=== PATIENT | male | born 1930 | race Caucasian/White ===

== ENCOUNTER 2018-06-22 11:05 | Inpatient (IN) | payer BC ==
[2018-06-22 11:53] LABS: ALANINE AMINOTRANSFERASE 31 U/L (21-72); ALKALINE PHOSPHATASE 55 U/L (38-126); ANION GAP 11 (5-19); ASPARTATE AMINO TRANSFERASE 46 U/L (17-59); BILIRUBIN,DIRECT 0.5 mg/dL (0.0-0.4); BILIRUBIN,TOTAL 0.8 mg/dL (0.2-1.3); BLOOD UREA NITROGEN 20 mg/dL (7-20); CALCIUM 9.6 mg/dL (8.4-10.2); CARBON DIOXIDE 26 mmol/L (22-30); CHLORIDE 100 mmol/L (98-107); CREATINE KINASE 138 U/L (55-170); GLUCOSE 199 mg/dL (75-110); POTASSIUM 4.3 mmol/L (3.6-5.0); SODIUM 137.2 mmol/L (137-145); TOTAL PROTEIN 8.2 g/dL (6.3-8.2)
[2018-06-22 11:54] LABS: ABSOLUTE BASOPHILS # (AUTO) 0.1 10^3/uL (0.0-0.2); ABSOLUTE EOSINOPHILS # (AUTO) 0.3 10^3/uL (0.0-0.6); ABSOLUTE LYMPHOCYTES (AUTO) 3.7 10^3/uL (0.5-4.7); ABSOLUTE MONOCYTES (AUTO) 1.4 10^3/uL (0.1-1.4); ABSOLUTE NEUT (AUTO) 5.1 10^3/uL (1.7-8.2); BASOPHILS % (AUTO) 0.7 % (0-2); EOSINOPHILS % (AUTO) 2.6 % (0-6); HEMATOCRIT 41.2 % (37.9-51.0); HEMOGLOBIN 14.3 g/dL (13.5-17.0); LYMPHOCYTES % (AUTO) 34.7 % (13-45); MEAN CORPUSCULAR HEMOGLOBIN 31.6 pg (27.0-33.4); MEAN CORPUSCULAR HGB CONC 34.6 g/dL (32.0-36.0); MEAN CORPUSCULAR VOLUME 91 fl (80-97); MONOCYTES % (AUTO) 13.6 % (3-13); PLATELET COUNT 267 10^3/uL (150-450); RED BLOOD COUNT 4.52 10^6/uL (4.35-5.55); RED CELL DISTRIBUTION WIDTH 15.1 % (11.5-14.0); SEGMENTED NEUTROPHILS % (AUTO) 48.4 % (42-78); TOTAL CELLS COUNTED % (AUTO) 100 %; WHITE BLOOD COUNT 10.6 10^3/uL (4.0-10.5)
[2018-06-22 12:05] LABS: CREATINE KINASE MB 4.44 ng/mL (<4.55)
[2018-06-22 12:08] LABS: TROPONIN I 0.051 ng/mL
--- NOTE | 2018-06-22 12:57 | RADIOLOGY REPORT (SQ) ---
EXAM DESCRIPTION: CHEST SINGLE VIEW COMPLETED DATE/TIME: 06/22/2018 12:47 pm REASON FOR STUDY: Syncope COMPARISON: AP chest 08/09/2016, 12/06/2011 EXAM PARAMETERS: NUMBER OF VIEWS: One view. TECHNIQUE: Single frontal radiographic view of the chest acquired. RADIATION DOSE: NA LIMITATIONS: None. FINDINGS: LUNGS AND PLEURA: Few Delano lines at both lung bases, likely from minimal interstitial pu lmonary edema. No pleural effusion or pneumothorax. No dense consolidation worrisome for pneumonia MEDIASTINUM AND HILAR STRUCTURES: No masses. Contour normal. HEART AND VASCULAR STRUCTURES: Borderline cardiomegaly, stable BONES: No acute findings. HARDWARE: None in the chest. OTHER: No other significant finding. IMPRESSION: Question minimal interstitial edema at the bases. TECHNICAL DOCUMENTATION: JOB ID: [id number] [employer]- All Rights Reserved Reading location - IP/workstation name: [email or web address]
--- NOTE | 2018-06-22 13:20 | RADIOLOGY REPORT (SQ) ---
EXAM DESCRIPTION: CT HEAD WITHOUT COMPLETED DATE/TIME: 06/22/2018 12:54 pm REASON FOR STUDY: syncope COMPARISON: 08/09/2016 CT brain TECHNIQUE: Axial images acquired through the brain without intravenous contrast. Images reviewed wi th bone, brain and subdural windows. Additional sagittal and coronal reconstructions were generated. Images stored on PACS. All CT scanners at this facility use dose modulation, iterative reconstruction, and/or weight based d osing when appropriate to reduce radiation dose to as low as reasonably achievable (ALARA). [facility]: Dose Right [facility]: CareDose [facility]: Dose Right [facility]: Teradose 4D [facility]: [employer] RADIATION DOSE: CT Rad equipment meets quality standard of care and radiation dose reduction techniq ues were employed. CTDIvol: 53.2 mGy. DLP: 1044 mGy-cm. mGy. LIMITATIONS: None. FINDINGS: VENTRICLES: Normal size and contour. CEREBRUM: No acute intracranial hemorrhage, mass effect, or midline shift. No low attenuation worris ome for acute ischemic change. There is stable chronic age-appropriate bifrontal and biparietal whit e matter disease CEREBELLUM: No masses. No hemorrhage. No alteration of density. No evidence for acute infarction. EXTRAAXIAL SPACES: No fluid collections. No masses. ORBITS AND GLOBE: No intra- or extraconal masses. Normal contour of globe without masses. CALVARIUM: No fracture. PARANASAL SINUSES: No fluid or mucosal thickening. SOFT TISSUES: No mass or hematoma. OTHER: No other significant finding. IMPRESSION: Age-appropriate white matter disease. No acute finding EVIDENCE OF ACUTE STROKE: NO. COMMENT: Quality ID # [id number]: Final reports with documentation of one or more dose reduction techniques (e.g., Automated exposure control, adjustment of the mA and/or kV according to patient size, use of iterative reconstruction technique) TECHNICAL DOCUMENTATION: JOB ID: [id number] [employer]- All Rights Reserved Reading location - IP/workstation name: [email or web address]
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
--- NOTE | 2018-06-22 16:53 | RADIOLOGY REPORT (SQ) ---
EXAM DESCRIPTION: CTA CHEST COMPLETED DATE/TIME: 06/22/2018 4:15 pm REASON FOR STUDY: syncope/ Elevated D-dimer . Shortness of breath. COMPARISON: Chest x-ray 06/22/2018. CT abdomen and pelvis 10/04/2014. TECHNIQUE: CT scan of the chest performed using helical scanning technique with dynamic intravenous contrast injection. Images reviewed with lung, soft tissue and bone windows. Reconstructed coronal and sagittal MPR images reviewed. Additional 3 dimensional post-processing performed to develop Maximal Intensity Projection images (NE P). All images stored on PACS. All CT scanners at this facility use dose modulation, iterative reconstruction, and/or weight based d osing when appropriate to reduce radiation dose to as low as reasonably achievable (ALARA). [facility]: Dose Right [facility]: CareDose [facility]: Dose Right [facility]: Teradose 4D [facility]: [place] [employer] CONTRAST TYPE AND DOSE: contrast/concentration: Isovue 350.00 mg/ml; Total Contrast Delivered: 69.0 ml; Total Saline Delivered: 90.0 ml Contrast bolus optimized for the pulmonary arteries. Not diagnostic for the aorta. RENAL FUNCTION: Creatinine 1.03 RADIATION DOSE: CT Rad equipment meets quality standard of care and radiation dose reduction techniq ues were employed. CTDIvol: 15.9 - 23.2 mGy. DLP: 597 mGy-cm. . LIMITATIONS: There is motion artifact. FINDINGS: LUNGS AND PLEURA: No consolidation, pleural effusion or pneumothorax. There are small binu ateral pleural calcifications and mild pleural thickening. . AORTA AND GREAT VESSELS: Fusiform aneurysmal dilation of the ascending thoracic aorta measuring up to 4.1 cm and of the descending thoracic aorta measuring up to 3.5 cm. Atherosclerotic calcifications are seen within the thoracic aorta. Contrast bolus not optimized for the aorta. HEART: No pericardial effusion. Moderate to marked coronary artery calcifications. PULMONARY ARTERIES: No emboli visualized in the main pulmonary arteries or the segmental branches. HILAR AND MEDIASTINAL STRUCTURES: No identified masses or abnormal nodes. HARDWARE: None in the chest. UPPER ABDOMEN: There is diffuse decreased attenuation of the liver, suggestive of fatty infiltration. Cortical exophytic cysts at the visualized left kidney measuring up to 2.2 cm. BONES: Multilevel degenerative changes are seen within the spine. 3D MIPS: Confirm above findings. IMPRESSION: 1. No pulmonary emboli. 2. 4.1 cm aneurysmal dilation of the ascending thoracic aorta and 3.5 cm aneurysmal dilation of the d escending thoracic aorta. 3. Small bilateral pleural calcifications and mild pleural thickening. 4. Fatty infiltration of the liver. COMMENT: Quality ID # [id number]: Final reports with documentation of one or more dose reduction techniques (e.g., Automated exposure control, adjustment of the mA and/or kV according to patient size, use of iterative reconstruction technique) TECHNICAL DOCUMENTATION: JOB ID: [id number] [employer]- All Rights Reserved Reading location - IP/workstation name: [email or web address]
[2018-06-22 17:48] LABS: APPEARANCE,URINE CLEAR; BILIRUBIN,URINE NEGATIVE (NEGATIVE); COLOR,URINE YELLOW; GLUCOSE, URINE NEGATIVE (NEGATIVE); KETONES,URINE NEGATIVE (NEGATIVE); LEUKOCYTE ESTERASE,URINE NEGATIVE (NEGATIVE); NITRITE,URINE NEGATIVE (NEGATIVE); PROTEIN,URINE 30 mg/dL (NEGATIVE); URINE SPECIFIC GRAVITY 1.025; UROBILINOGEN,URINE NEGATIVE mg/dL (<2.0)
[2018-06-22 18:38] LABS: FREE T3 1.85 pg/mL (2.77-5.27); FREE T4 (FREE THYROXINE) 1.02 ng/dL (0.78-2.19)
[2018-06-22] MEDS ORDERED: ACETAMINOPHEN 325 MG TABLET PO PRN (19:16)
[2018-06-22] MEDS ORDERED: IPRATROPIUM/ALBUTEROL 0.5-2.5 MG/3 ML AMPUL NEB PRN (19:16)
[2018-06-22] MEDS ORDERED: ALBUTEROL SULFATE 0.083% NEB 2.5 MG/3 ML AMPUL NEB ONE (19:18)
[2018-06-22] MEDS ORDERED: NORMAL SALINE 1000 ML 1,000 ML IV ONE (19:19)
[2018-06-22 20:22] LABS: CREATINE KINASE MB 8.17 ng/mL (<4.55)
[2018-06-22 20:32] LABS: TROPONIN I 0.059 ng/mL
[2018-06-22] MEDS: MAG HYDROX/AL HYDROX/SIMETH SUSP 30 ML UDCUP PO PRN (22:21)
[2018-06-22] MEDS: HEPARIN SOD (PORCINE) 5,000 UNIT/ML 1 ML SYRINGE SUBCUT SCH (22:21)
[2018-06-23 04:09] LABS: CREATINE KINASE MB 8.49 ng/mL (<4.55); TROPONIN I 0.067 ng/mL
--- NOTE | 2018-06-23 04:55 | PDOC H&P ---
History of Present Illness Admission Date/PCP: 06/22/18 19:39 Patient complains of: Loss of consciousness History of Present Illness: EVI MAI is a 87 year old male with a past medical history of hypertension , BPH, thoracic aneurysm and digoxin, beta-jesus induced bradycardia with syncope. He presents after premonition of exceptional weakness followed by syncope to the floor where he was found by family members unresponsive calling EMS the patient regained consciousness denying headache, palpitations, chest pain, nausea or vomiting. He is found to have a heart rate in the 40s brought to the emergency room for evaluation patient denies previous episode however upon further evaluation of his record he was admitted in August 2016 following a similar story. At that time he was discharged and instructed to discontinue metoprolol and digoxin. In the emergency room he is found to have no heart block but persistent bradycardia and a medication bag including metoprolol, digoxin, and new medication tamsulosin. His workup is otherwise remarkable for a CTA of the chest showing a 4.1 cm ascending thoracic aneurysm and 3.5 cm descending thoracic aneurysm. Past Medical History Cardiac Medical History: Reports: Atrial Fibrillation, Hyperlipidema, Hypertension Denies: Myocardial Infarction Pulmonary Medical History: Denies: Asthma Neurological Medical History: Denies: Seizures Endocrine Medical History: Reports: Hypothyroidism GI Medical History: Reports: Gastroesophageal Reflux Disease - Colonic polyps 1996 Inguinal hernia; hydrocele Denies: Hepatitis, Hiatal Hernia Psychiatric Medical History: Denies: Depression Hematology: Denies: Anemia, Sickle Cell Disease Past Surgical History Past Surgical History: Denies: Pacemaker Social History Information Source: Patient, [facility] Records Lives with: Alone Smoking Status: Former Smoker Last Time Smoked: 2000 Frequency of Alcohol Use: Rare Hx Recreational Drug Use: No Drugs: None Hx Prescription Drug Abuse: No - Advance Directive Resuscitation Status: Full Code Family History Family History: Hypertension Parental Family History Reviewed: Yes Children Family History Reviewed: Yes Sibling(s) Family History Reviewed.: Yes Medication/Allergy Home Medications: Atorvastatin Calcium [Lipitor] 1 tab PO DAILY 08/09/16 Fenofibrate Nanocrystallized [Tricor] 1 tab PO DAILY 08/09/16 Levothyroxine Sodium [Synthroid] 1 tab PO DAILY 08/09/16 Metoprolol Succinate [Toprol Xl 25 mg Tab.sr] 25 mg PO DAILY #30 tab.sr.24h 01/20 Cetirizine HCl [Zyrtec] 10 mg PO DAILY 06/23/18 Digoxin [Lanoxin 0.25 mg Tablet] 0.25 mg PO DAILY 06/23/18 Lisinopril [Prinivil 10 mg Tablet] 10 mg PO DAILY 06/23/18 Tamsulosin HCl 0.4 mg PO DAILY 06/23/18 Allergies/Adverse Reactions: Penicillins Allergy (Verified 08/09/16 08:09) WEAK Review of Systems Constitutional: ABSENT: chills, fever(s), headache(s), weight gain, weight loss Eyes: ABSENT: visual disturbances Ears: ABSENT: hearing changes Cardiovascular: ABSENT: chest pain, dyspnea on exertion, edema, orthropnea, palpitations Respiratory: ABSENT: cough, hemoptysis Gastrointestinal: ABSENT: abdominal pain, constipation, diarrhea, hematemesis, hematochezia, nausea, vomiting Genitourinary: ABSENT: dysuria, hematuria Musculoskeletal: ABSENT: joint swelling Integumentary: ABSENT: rash, wounds Neurological: ABSENT: abnormal gait, abnormal speech, confusion, dizziness, focal weakness, syncope Psychiatric: ABSENT: anxiety, depression, homidical ideation, suicidal ideation Endocrine: ABSENT: cold intolerance, heat intolerance, polydipsia, polyuria Hematologic/Lymphatic: ABSENT: easy bleeding, easy bruising Physical Exam Vital Signs: Temp Pulse Resp BP Pulse Ox 98.6 F 50 L 11 L 124/59 L 93 06/23/18 02:42 06/23/18 02:42 06/23/18 03:01 06/23/18 03:01 06/23/18 03:01 Intake & Output 06/21/18 06/22/18 06/23/18 11:59 11:59 11:59 Intake Total 1000 Balance 1000 Weight 70.8 kg General appearance: PRESENT: no acute distress, well-developed, well-nourished Head exam: PRESENT: atraumatic, normocephalic Eye exam: PRESENT: conjunctiva pink, EOMI, PERRLA. ABSENT: scleral icterus Ear exam: PRESENT: normal external ear exam Mouth exam: PRESENT: moist, tongue midline Neck exam: ABSENT: carotid bruit, JVD, lymphadenopathy, thyromegaly Respiratory exam: PRESENT: clear to auscultation binu. ABSENT: rales, rhonchi, wheezes Cardiovascular exam: PRESENT: RRR. ABSENT: diastolic murmur, rubs, systolic murmur Pulses: PRESENT: normal dorsalis pedis pul Vascular exam: PRESENT: normal capillary refill GI/Abdominal exam: PRESENT: normal bowel sounds, soft. ABSENT: distended, guarding, mass, organolmegaly, rebound, tenderness Rectal exam: PRESENT: deferred Extremities exam: PRESENT: full ROM. ABSENT: calf tenderness, clubbing, pedal edema Neurological exam: PRESENT: alert, awake, oriented to person, oriented to place , oriented to time, oriented to situation, CN II-XII grossly intact. ABSENT: motor sensory deficit Psychiatric exam: PRESENT: appropriate affect, normal mood. ABSENT: homicidal ideation, suicidal ideation Skin exam: PRESENT: dry, intact, warm. ABSENT: cyanosis, rash Results Laboratory Results: 06/22/18 06/22/18 06/23/18 19:40 19:40 02:25 Creatine Kinase 276 H 317 H CK-MB (CK-2) 8.17 H Troponin I 0.059 06/23/18 02:25 Creatine Kinase CK-MB (CK-2) 8.49 H Troponin I 0.067 Impressions: Chest X-Ray 06/22/18 11:39 IMPRESSION: Question minimal interstitial edema at the bases. Head CT 06/22/18 11:43 IMPRESSION: Age-appropriate white matter disease. No acute finding EVIDENCE OF ACUTE STROKE: NO. Chest/Abdomen CTA 06/22/18 15:30 IMPRESSION: 1. No pulmonary emboli. 2. 4.1 cm aneurysmal dilation of the ascending thoracic aorta and 3.5 cm aneurysmal dilation of the descending thoracic aorta. 3. Small bilateral pleural calcifications and mild pleural thickening. 4. Fatty infiltration of the liver. Assessment & Plan - Diagnosis (1) Bradycardia Is this a current diagnosis for this admission?: Yes Plan: Iatrogenic secondary to digoxin, metoprolol and tamsulosin. Hold all 3 with resumption of lower digoxin dose, metoprolol and substitution of Proscar for tamsulosin. Follow-up orthostatic vitals and cardiac enzymes (2) Syncope Qualifiers: Syncope type: unspecified Qualified Code(s): R55 - Syncope and collapse Is this a current diagnosis for this admission?: Yes Plan: Secondary to #1, systematic management, bedside pacers (3) Hypotension Qualifiers: Hypotension type: unspecified hypotension type Qualified Code(s): I95.9 - Hypotension, unspecified Is this a current diagnosis for this admission?: Yes Plan: Secondary to #1 (4) Thoracic aortic aneurysm without rupture Is this a current diagnosis for this admission?: Yes Plan: Obtain records for comparison - Time Time Spent: 50 to 70 Minutes - Inpatient Certification Medical Necessity: Need Close Monitoring Due to Risk of Patient Decompensation
--- NOTE | 2018-06-23 05:20 | EKG REPORT ---
SEVERITY:- ABNORMAL ECG - SINUS BRADYCARDIA FIRST DEGREE AV BLOCK LVH WITH SECONDARY REPOLARIZATION ABNORMALITY : Confirmed by: Sujit Cervantes 23-Jun-2018 05:18:49
--- NOTE | 2018-06-23 05:20 | EKG REPORT ---
SEVERITY:- ABNORMAL ECG - SINUS BRADYCARDIA FIRST DEGREE AV BLOCK LVH WITH SECONDARY REPOLARIZATION ABNORMALITY ANTERIOR Q WAVES, POSSIBLY DUE TO LVH : Confirmed by: Sujit Cervantes 23-Jun-2018 05:19:06
[2018-06-23] MEDS: HEPARIN SOD (PORCINE) 5,000 UNIT/ML 1 ML SYRINGE SUBCUT SCH ×3 (05:22→21:50)
[2018-06-23 08:21] LABS: ABSOLUTE BASOPHILS # (AUTO) 0.1 10^3/uL (0.0-0.2); ABSOLUTE EOSINOPHILS # (AUTO) 0.2 10^3/uL (0.0-0.6); ABSOLUTE LYMPHOCYTES (AUTO) 2.1 10^3/uL (0.5-4.7); ABSOLUTE MONOCYTES (AUTO) 1.2 10^3/uL (0.1-1.4); ABSOLUTE NEUT (AUTO) 4.8 10^3/uL (1.7-8.2); BASOPHILS % (AUTO) 0.8 % (0-2); EOSINOPHILS % (AUTO) 2.5 % (0-6); HEMATOCRIT 36.8 % (37.9-51.0); HEMOGLOBIN 12.8 g/dL (13.5-17.0); LYMPHOCYTES % (AUTO) 25.3 % (13-45); MEAN CORPUSCULAR HEMOGLOBIN 31.5 pg (27.0-33.4); MEAN CORPUSCULAR HGB CONC 34.9 g/dL (32.0-36.0); MEAN CORPUSCULAR VOLUME 90 fl (80-97); MONOCYTES % (AUTO) 13.9 % (3-13); PLATELET COUNT 222 10^3/uL (150-450); RED BLOOD COUNT 4.07 10^6/uL (4.35-5.55); RED CELL DISTRIBUTION WIDTH 14.7 % (11.5-14.0); SEGMENTED NEUTROPHILS % (AUTO) 57.5 % (42-78); TOTAL CELLS COUNTED % (AUTO) 100 %; WHITE BLOOD COUNT 8.3 10^3/uL (4.0-10.5)
[2018-06-23 08:44] LABS: ANION GAP 7 (5-19); BLOOD UREA NITROGEN 13 mg/dL (7-20); CALCIUM 8.6 mg/dL (8.4-10.2); CARBON DIOXIDE 28 mmol/L (22-30); CHLORIDE 102 mmol/L (98-107); GLUCOSE 99 mg/dL (75-110)
[2018-06-23 08:54] LABS: CREATINE KINASE MB 7.91 ng/mL (<4.55); TROPONIN I 0.063 ng/mL
[2018-06-23] MEDS: FENOFIBRATE NANOCRYSTALLIZED 48 MG TABLET PO SCH (09:32)
[2018-06-23] MEDS: ATORVASTATIN CALCIUM 10 MG TABLET PO SCH (09:32)
[2018-06-23] MEDS: FINASTERIDE 5 MG TABLET PO SCH (09:32)
[2018-06-23] MEDS ORDERED: DOCUSATE SODIUM 100 MG CAPSULE PO SCH (10:00)
[2018-06-23] MEDS ORDERED: LEVOTHYROXINE SODIUM 0.112 MG TABLET PO SCH (10:00)
[2018-06-23] MEDS ORDERED: LEVOTHYROXINE SODIUM INJ/PF 0.5 MG SDV IV ONE (11:34)
[2018-06-23] MEDS ORDERED: LEVOTHYROXINE SODIUM INJ/PF 0.1 MG SDV IV ONE (11:34)
[2018-06-23] MEDS ORDERED: (PENDING PHARMACY ID) (Lansoprazole [Prevacid] 15 MG) PO PRN (12:45)
[2018-06-23] MEDS ORDERED: LEVOTHYROXINE SODIUM 0.15 MG TABLET PO ONE (13:00)
--- NOTE | 2018-06-23 13:00 | PDOC PROGRESS REPORT ---
Subjective Progress Note for:: 06/23/18 Subjective:: The patient is an 87-year-old male with past medical history of atrial fibrillation, hypertension, hyperlipidemia, BPH who was admitted on 06/22/18 for syncope and found to be bradycardic with a heart rate in the 40s. The patient was seen on morning rounds with his family member present. He is found sitting up to the edge of the bed comfortably on room air. He denies symptoms at this time stating that he feels much better; he denies headache, dizziness, chest pain, palpitations, dyspnea, orthopnea. He tells me that he was unaware of a thoracic aneurysm and believes that the only other hospital that he has had any imaging done at is located in [place]. We did discuss his home medications and he became confused on numerous times regarding the names and dosing of his medications; it is possible that the patient has accidentally overdosing on his Hypertension medications. Additionally his TSH is found to be elevated to 83 and perhaps he is not taking his levothyroxine consistently. He may benefit from home health nursing for medication management. He has no specific questions or concerns today. His daughter is concerned that the patient be evaluated by cardiology prior to discharge. No concerns per nursing. Reason For Visit: SYMPTOMATIC BRADYCARDIA Physical Exam Vital Signs: Temp Pulse Resp BP Pulse Ox 98.3 F 55 L 16 117/52 L 97 06/23/18 07:24 06/23/18 12:35 06/23/18 12:35 06/23/18 07:24 06/23/18 12:35 Intake & Output 06/22/18 06/23/18 06/24/18 06:59 06:59 06:59 Intake Total 1000 Output Total 0 Balance 1000 Weight 70.8 kg General appearance: PRESENT: no acute distress, cooperative, well-developed, well-nourished Head exam: PRESENT: atraumatic, normocephalic Eye exam: PRESENT: conjunctiva pink, EOMI, PERRLA. ABSENT: scleral icterus Ear exam: PRESENT: normal external ear exam Mouth exam: PRESENT: moist, tongue midline Neck exam: ABSENT: carotid bruit, JVD, lymphadenopathy, thyromegaly Respiratory exam: PRESENT: clear to auscultation binu, symmetrical, unlabored. ABSENT: rales, rhonchi, wheezes Cardiovascular exam: PRESENT: bradycardia, RRR. ABSENT: diastolic murmur, rubs , systolic murmur Pulses: PRESENT: normal dorsalis pedis pul Vascular exam: PRESENT: normal capillary refill GI/Abdominal exam: PRESENT: normal bowel sounds, soft. ABSENT: distended, guarding, mass, organolmegaly, rebound, tenderness Rectal exam: PRESENT: deferred Extremities exam: PRESENT: full ROM. ABSENT: calf tenderness, clubbing, pedal edema Neurological exam: PRESENT: alert, awake, oriented to person, oriented to place , oriented to time, oriented to situation, CN II-XII grossly intact, other - Forgetful. ABSENT: motor sensory deficit Psychiatric exam: PRESENT: appropriate affect, normal mood. ABSENT: homicidal ideation, suicidal ideation Skin exam: PRESENT: dry, intact, warm. ABSENT: cyanosis, rash Results Laboratory Results: 06/23/18 07:44 06/23/18 07:44 06/23/18 06/23/18 07:44 07:44 WBC 8.3 RBC 4.07 L Hgb 12.8 L Hct 36.8 L MCV 90 MCH 31.5 MCHC 34.9 RDW 14.7 H Plt Count 222 Seg Neutrophils % 57.5 Lymphocytes % 25.3 Monocytes % 13.9 H Eosinophils % 2.5 Basophils % 0.8 Absolute Neutrophils 4.8 Absolute Lymphocytes 2.1 Absolute Monocytes 1.2 Absolute Eosinophils 0.2 Absolute Basophils 0.1 Sodium 137.0 Potassium 4.0 Chloride 102 Carbon Dioxide 28 Anion Gap 7 BUN 13 Creatinine 0.59 Est GFR ( Amer) > 60 Est GFR (Non-Af Amer) > 60 Glucose 99 Calcium 8.6 Magnesium 2.1 06/22/18 06/22/18 06/23/18 19:40 19:40 02:25 Creatine Kinase 276 H 317 H CK-MB (CK-2) 8.17 H Troponin I 0.059 06/23/18 06/23/18 06/23/18 02:25 07:44 07:44 Creatine Kinase 333 H CK-MB (CK-2) 8.49 H 7.91 H Troponin I 0.067 0.063 Impressions: Chest X-Ray 06/22/18 11:39 IMPRESSION: Question minimal interstitial edema at the bases. Head CT 06/22/18 11:43 IMPRESSION: Age-appropriate white matter disease. No acute finding EVIDENCE OF ACUTE STROKE: NO. Chest/Abdomen CTA 06/22/18 15:30 IMPRESSION: 1. No pulmonary emboli. 2. 4.1 cm aneurysmal dilation of the ascending thoracic aorta and 3.5 cm aneurysmal dilation of the descending thoracic aorta. 3. Small bilateral pleural calcifications and mild pleural thickening. 4. Fatty infiltration of the liver. Assessment & Plan - Diagnosis (1) Bradycardia Is this a current diagnosis for this admission?: Yes Plan: Multifactorial secondary to just digoxin, metoprolol, and flomax use, as well as , hypothyroidism. Digoxin level 1.99 TSH 81 CBC and BMP are unremarkable. Troponins are indeterminately elevated but stable. Head CT is negative. Chest x-ray is benign. Chest CTA reveals ascending and descending thoracic aneurysms. Echocardiogram is pending. The patient has been admitted to the medical floor on continuous cardiac telemetry. His digoxin, metoprolol, and Flomax are held. We will adjust home dose of Synthroid. Cardiology has been consulted; appreciate Dr. Martinez's assistance and recommendations. Discharge planning has been consulted; patient will benefit from home health nursing for disease and medication education and management. (2) Hypothyroidism Qualifiers: Hypothyroidism type: unspecified Qualified Code(s): E03.9 - Hypothyroidism , unspecified Is this a current diagnosis for this admission?: Yes Plan: TSH 81.5 Free T4 1.02 Free T3 1.85 Will increase levothyroxine to 150 mcg daily. Recommend home health nursing or family to manage the patient's medications in the future to ensure that the patient is consistently receiving the correct medications. (3) Syncope Qualifiers: Syncope type: unspecified Qualified Code(s): R55 - Syncope and collapse Is this a current diagnosis for this admission?: Yes Plan: Secondary to #1. Echocardiogram is pending. Orthostatics are negative. We will monitor on continuous cardiac telemetry. Fall precautions are in place. PT/OT evaluations. (4) Thoracic aortic aneurysm without rupture Is this a current diagnosis for this admission?: Yes Plan: CTA of the chest revealed ascending 4.1 thoracic aneurysm and a 3.5 cm descending thoracic aneurysm. The patient tells me he was unaware of thoracic aortic aneurysm; he reports that the only other hospital he has visited and obtain imaging at is located in [place]. We will attempt to obtain records for comparison. (5) Hypotension Qualifiers: Hypotension type: unspecified hypotension type Qualified Code(s): I95.9 - Hypotension, unspecified Is this a current diagnosis for this admission?: Yes Plan: Plan as above. (6) Hyperlipidemia Qualifiers: Hyperlipidemia type: unspecified Qualified Code(s): E78.5 - Hyperlipidemia , unspecified Is this a current diagnosis for this admission?: Yes Plan: Cardiac diet. Continue home dose statin. - Time Time Spent with patient: 15-24 minutes Medications reviewed and adjusted accordingly: Yes Anticipated discharge: Home Within: within 24 hours
[2018-06-23] MEDS ORDERED: LANSOPRAZOLE 15 MG TAB.RAP.DR PO PRN (13:34)
[2018-06-23 16:18] LABS: CREATINE KINASE MB 5.84 ng/mL (<4.55); TROPONIN I 0.053 ng/mL
[2018-06-24 04:37] LABS: HEMATOCRIT 34.9 % (37.9-51.0); HEMOGLOBIN 12.2 g/dL (13.5-17.0); MEAN CORPUSCULAR HEMOGLOBIN 31.3 pg (27.0-33.4); MEAN CORPUSCULAR HGB CONC 35.1 g/dL (32.0-36.0); MEAN CORPUSCULAR VOLUME 89 fl (80-97); PLATELET COUNT 218 10^3/uL (150-450); RED BLOOD COUNT 3.91 10^6/uL (4.35-5.55); RED CELL DISTRIBUTION WIDTH 14.6 % (11.5-14.0); WHITE BLOOD COUNT 8.3 10^3/uL (4.0-10.5)
[2018-06-24 05:00] LABS: ANION GAP 9 (5-19); BLOOD UREA NITROGEN 12 mg/dL (7-20); CALCIUM 8.4 mg/dL (8.4-10.2); CARBON DIOXIDE 25 mmol/L (22-30); CHLORIDE 100 mmol/L (98-107); GLUCOSE 104 mg/dL (75-110); SODIUM 133.7 mmol/L (137-145)
[2018-06-24] MEDS: HEPARIN SOD (PORCINE) 5,000 UNIT/ML 1 ML SYRINGE SUBCUT SCH ×3 (06:32→22:59)
[2018-06-24] MEDS: LEVOTHYROXINE SODIUM 0.15 MG TABLET PO SCH (06:32)
[2018-06-24] MEDS: DOCUSATE SODIUM 100 MG CAPSULE PO SCH (09:49)
[2018-06-24] MEDS: FERROUS SULFATE 325 MG TABLET PO SCH (09:49)
[2018-06-24] MEDS: ATORVASTATIN CALCIUM 10 MG TABLET PO SCH (09:49)
[2018-06-24] MEDS: FINASTERIDE 5 MG TABLET PO SCH (09:49)
[2018-06-24] MEDS: ASPIRIN 81 MG TABLET, ENT COATED PO SCH (09:49)
[2018-06-24] MEDS: FENOFIBRATE NANOCRYSTALLIZED 48 MG TABLET PO SCH (09:53)
[2018-06-24] MEDS: CETIRIZINE 10 MG TABLET PO SCH (09:53)
[2018-06-24] MEDS ORDERED: (PENDING PHARMACY ID) (Docusate Calcium [Stool Softener] 240 MG) PO SCH (10:00)
[2018-06-24] MEDS ORDERED: (PENDING PHARMACY ID) (Cetirizine Hcl [Zyrtec] 10 MG) PO SCH (10:00)
--- NOTE | 2018-06-24 15:32 | EKG REPORT ---
SEVERITY:- ABNORMAL ECG - SINUS RHYTHM FIRST DEGREE AV BLOCK LVH WITH SECONDARY REPOLARIZATION ABNORMALITY : Confirmed by: Nydia Bryson MD 24-Jun-2018 15:31:13
[2018-06-24] MEDS ORDERED: POLYETHYLENE GLYCOL 3350 POWDER 17 GM/1 PACKET PO PRN (16:29)
[2018-06-24] MEDS: SENNOSIDES/DOCUSATE 8.6-50 MG 1 EACH TABLET PO SCH (17:44)
[2018-06-24] MEDS ORDERED: NORMAL SALINE 500 ML IV PRN (19:04)
--- NOTE | 2018-06-24 20:49 | Progress Note ---
Provider Note Provider Note: PROGRESS NOTE by Dr. Nydia Bryson for 06/24/2018. OBJECTIVE: The patient denies any chest pain or discomfort, there is no PND orthopnea. The patient continues to be bradycardic the most his heart rate has gone up to is 63. His EKG still shows first-degree AV block and LVH with strain pattern. He denies any chest pain or discomfort. There is no PND orthopnea, there is no shortness of breath. There is no leg edema. There is no dizziness near syncope or syncope. There is no TIA or CVA symptoms. There is no recurrence of atrial fibrillation. There is no ventricular arrhythmias seen on the monitor. Selected Entries PHYSICAL EXAMINATION: The patient is well-built and well-nourished, in no acute distress 06/24/18 15:08 Temperature 98.7 F Temperature Oral Source Pulse Rate 63 Respiratory 16 Rate Blood Pressure 161/78 H Blood Pressure 105 Mean O2 Sat by Pulse 94 Oximetry Oxygen Delivery Room Air Method HEAD: Head is atraumatic normocephalic. EYES: Pupils are equal round regular reactive to light accommodation extraocular movements are normal there is no conjunctival pallor there is no scleral icterus. EARS: Tympanic membranes are intact external auditory canals are clear. NOSE: There is no deviated nasal septum,nares are patent. MOUTH: Mouth is moist there is no ulcers in the mucous membrane tongue is moist there is no bleeding from the gums. THROAT: There is no redness of the oropharynx there is no exudates. SKIN: Skin is without any skin rashes or skin lesions. There is no petechia or ecchymosis. NECK: Neck is supple there is no JVD carotids are equal there is no bruit there is no lymphadenopathy there is no goiter there is trachea central. There is no accessory muscles of respiration use. LUNGS: Lungs are clear without any rhonchi rales or wheezing. There is no chest wall tenderness. HEART: S1-S2 is heard S1 is of normal intensity there is no S3 gallop there is no S4 gallop the systolic murmur in the left sternal border and apex there is no rub. There is mild aortic stenosis murmur present. This seems to be clinically nonsignificant. ABDOMEN: There is no masses or tenderness in the abdomen. Bowel sounds well heard. There is no hepatosplenomegaly. EXTREMITIES: Femorals are slightly diminished there is no femoral bruits neck pulses are diminished there is no pedal edema there is no DVT or cellulitis is no calf tenderness. BUSINESS ACCOUNT MANAGER: The patient is conscious awake alert oriented 3 with no focal deficits. PSYCHIATRIC: The patient judgment and insight are intact his affect is normal. 06/23/18 06/24/18 06/24/18 15:23 04:02 04:02 WBC 8.3 Hgb 12.2 L Hct 34.9 L Plt Count 218 Sodium 133.7 L Potassium 4.0 Chloride 100 Carbon Dioxide 25 Anion Gap 9 BUN 12 Creatinine 0.57 Est GFR (Non-Af Amer) > 60 Glucose 104 Calcium 8.4 CK-MB (CK-2) 5.84 H Troponin I 0.053 IMPRESSION/RECOMMENDATION 1. Syncope: Most likely secondary to bradycardia dysrhythmia due to increased sensitivity to digoxin and his SA/AV elizabeth blocking agents due to the patient's severe hypothyroidism.. Present would hold the patient's SA and AV elizabeth blocking agents. Would recommend giving the patient intravenous thyroid replacement. NOTE the patient states that 3 years ago he had a another syncopal episode. The workup which was negative as per the patient. Note that the patient's heart rate is still slow and the patient's continues to have a first-degree AV block., In view of this would recommend to hold the patient's digoxin and is beta-jesus. This should be restarted later by his primary technical sales associate, whom he will be seeing next week. Strongly recommend a 30-day event monitor. Suspect that the heart rate will come up once the patient's hypothyroid state has been 2. Severe hypothyroid state: The patient claims that he has been taking his Synthroid, but but his TSH is very high. 3. Hypertension: Not well controlled. We will restart the patient's lisinopril at 10 mg p.o. every 12 hours. 4. Paroxysmal atrial fibrillation. At present the patient is in sinus bradycardia with first-degree AV block. Not in view of the patient's age patient not a good candidate for chronic anticoagulation therapy. Note that the patient is not on chronic anticoagulation. Note that the patient is desirous of going home. Hence will discuss charge the patient as discussed with the hospitalist. Would not restart the patient's beta -jesus/calcium channel jesus and digoxin. He will follow-up with his primary technical sales associate Dr. RAY, and will leave this to Dr. RAY to resume his SA/AV elizabeth blocking agents. Note medical decision making is of high complexity. 40 minutes spent on this patient more than 50% of the time spent in direct patient care. His medications have been reviewed and, medications have been added. Discussed with the hospitalist taking care of the patient. Will sign off the case. Thanking you
[2018-06-24] MEDS: LISINOPRIL 10 MG TABLET PO SCH (22:58)
[2018-06-25] MEDS: LEVOTHYROXINE SODIUM 0.15 MG TABLET PO SCH (05:21)
[2018-06-25] MEDS: MAG HYDROX/AL HYDROX/SIMETH SUSP 30 ML UDCUP PO PRN (05:21)
[2018-06-25] MEDS: HEPARIN SOD (PORCINE) 5,000 UNIT/ML 1 ML SYRINGE SUBCUT SCH (05:26)
[2018-06-25] MEDS: FINASTERIDE 5 MG TABLET PO SCH (11:11)
[2018-06-25] MEDS: ASPIRIN 81 MG TABLET, ENT COATED PO SCH (11:11)
[2018-06-25] MEDS: FERROUS SULFATE 325 MG TABLET PO SCH (11:11)
[2018-06-25] MEDS: DOCUSATE SODIUM 100 MG CAPSULE PO SCH (11:12)
[2018-06-25] MEDS: SENNOSIDES/DOCUSATE 8.6-50 MG 1 EACH TABLET PO SCH (11:12)
[2018-06-25] MEDS: CETIRIZINE 10 MG TABLET PO SCH (11:12)
[2018-06-25] MEDS: FENOFIBRATE NANOCRYSTALLIZED 48 MG TABLET PO SCH (11:12)
[2018-06-25] MEDS: LISINOPRIL 10 MG TABLET PO SCH (11:12)
[2018-06-25] MEDS: ATORVASTATIN CALCIUM 10 MG TABLET PO SCH (11:12)
--- NOTE | 2018-06-25 12:05 | PDOC PROGRESS REPORT ---
Subjective Progress Note for:: 06/24/18 Subjective:: The patient is an 87-year-old male with past medical history of atrial fibrillation, hypertension, hyperlipidemia, BPH who was admitted on 06/22/18 for syncope and found to be bradycardic with a heart rate in the 40s. The patient was seen on morning rounds. He is resting comfortably in bed on room air. He denies symptoms at this time stating that he feels much better; he denies headache, dizziness, chest pain, palpitations, dyspnea, orthopnea. Currently awaiting disposition by cardiology. Reason For Visit: SYMPTOMATIC BRADYCARDIA Physical Exam Vital Signs: Temp Pulse Resp BP Pulse Ox 98.0 F 56 L 18 163/78 H 98 06/24/18 11:00 06/24/18 11:00 06/24/18 11:00 06/24/18 11:00 06/24/18 11:00 Intake & Output 06/23/18 06/24/18 06/25/18 06:59 06:59 06:59 Intake Total 1000 950 300 Output Total 0 375 Balance 1000 575 300 Weight 70.8 kg 71.3 kg General appearance: PRESENT: no acute distress, well-developed, well-nourished Head exam: PRESENT: atraumatic, normocephalic Eye exam: PRESENT: conjunctiva pink, EOMI, PERRLA. ABSENT: scleral icterus Ear exam: PRESENT: normal external ear exam Mouth exam: PRESENT: moist, tongue midline Neck exam: ABSENT: carotid bruit, JVD, lymphadenopathy, thyromegaly Respiratory exam: PRESENT: clear to auscultation binu. ABSENT: rales, rhonchi, wheezes Cardiovascular exam: PRESENT: bradycardia, RRR, +S1, +S2. ABSENT: diastolic murmur, rubs, systolic murmur Pulses: PRESENT: normal radial pulses, normal dorsalis pedis pul Vascular exam: PRESENT: normal capillary refill GI/Abdominal exam: PRESENT: normal bowel sounds, soft. ABSENT: distended, guarding, mass, organolmegaly, rebound, tenderness Rectal exam: PRESENT: deferred Extremities exam: PRESENT: full ROM. ABSENT: calf tenderness, clubbing, pedal edema Neurological exam: PRESENT: alert, awake, oriented to person, oriented to place , oriented to time, oriented to situation Psychiatric exam: PRESENT: appropriate affect, normal mood Skin exam: PRESENT: dry, intact, warm. ABSENT: cyanosis, rash Results Laboratory Results: 06/24/18 04:02 06/24/18 04:02 06/24/18 06/24/18 04:02 04:02 WBC 8.3 RBC 3.91 L Hgb 12.2 L Hct 34.9 L MCV 89 MCH 31.3 MCHC 35.1 RDW 14.6 H Plt Count 218 Sodium 133.7 L Potassium 4.0 Chloride 100 Carbon Dioxide 25 Anion Gap 9 BUN 12 Creatinine 0.57 Est GFR ( Amer) > 60 Est GFR (Non-Af Amer) > 60 Glucose 104 Calcium 8.4 06/22/18 06/22/18 06/23/18 19:40 19:40 02:25 Creatine Kinase 276 H 317 H CK-MB (CK-2) 8.17 H Troponin I 0.059 06/23/18 06/23/18 06/23/18 02:25 07:44 07:44 Creatine Kinase 333 H CK-MB (CK-2) 8.49 H 7.91 H Troponin I 0.067 0.063 06/23/18 15:23 Creatine Kinase CK-MB (CK-2) 5.84 H Troponin I 0.053 Impressions: Chest X-Ray 06/22/18 11:39 IMPRESSION: Question minimal interstitial edema at the bases. Head CT 06/22/18 11:43 IMPRESSION: Age-appropriate white matter disease. No acute finding EVIDENCE OF ACUTE STROKE: NO. Chest/Abdomen CTA 06/22/18 15:30 IMPRESSION: 1. No pulmonary emboli. 2. 4.1 cm aneurysmal dilation of the ascending thoracic aorta and 3.5 cm aneurysmal dilation of the descending thoracic aorta. 3. Small bilateral pleural calcifications and mild pleural thickening. 4. Fatty infiltration of the liver. Status: Imported from PACS Assessment & Plan - Diagnosis (1) Bradycardia Is this a current diagnosis for this admission?: Yes Plan: Multifactorial secondary to digoxin, metoprolol, and flomax use, as well as, hypothyroidism. Digoxin level 1.99 TSH 81 CBC and BMP are unremarkable. Troponins are indeterminately elevated but stable. Head CT is negative. Chest x-ray is benign. Chest CTA reveals ascending and descending thoracic aneurysms. Echocardiogram completed, results are normal per Dr. Quinn. The patient has been admitted to the medical floor on continuous cardiac telemetry. His digoxin, metoprolol, and Flomax are held. Cardiology has been consulted; appreciate Dr. Quinn's assistance and recommendations. Discharge planning has been consulted; patient will benefit from home health nursing for disease and medication education and management. (2) Hypothyroidism Qualifiers: Hypothyroidism type: unspecified Qualified Code(s): E03.9 - Hypothyroidism , unspecified Is this a current diagnosis for this admission?: Yes Plan: TSH 81.5 Free T4 1.02 Free T3 1.85 Will increase levothyroxine to 150 mcg daily. Recommend home health nursing or family to manage the patient's medications in the future to ensure that the patient is consistently receiving the correct medications. (3) Syncope Qualifiers: Syncope type: unspecified Qualified Code(s): R55 - Syncope and collapse Is this a current diagnosis for this admission?: Yes Plan: Secondary to #1. Echocardiogram is benign. Continue orthostatic VS q shift. We will monitor on continuous cardiac telemetry. Fall precautions are in place. PT/OT evaluations. (4) Hyperlipidemia Qualifiers: Hyperlipidemia type: unspecified Qualified Code(s): E78.5 - Hyperlipidemia , unspecified Is this a current diagnosis for this admission?: Yes Plan: Cardiac diet. Continue home dose statin. (5) Thoracic aortic aneurysm without rupture Is this a current diagnosis for this admission?: Yes Plan: CTA of the chest revealed ascending 4.1 thoracic aneurysm and a 3.5 cm descending thoracic aneurysm. The patient tells me he was unaware of thoracic aortic aneurysm; he reports that the only other hospital he has visited and obtain imaging at is located in [place]. - Time Time Spent with patient: 15-24 minutes Medications reviewed and adjusted accordingly: Yes Anticipated discharge: Home Within: within 24 hours - Inpatient Certification Based on my medical assessment, after consideration of the patient's comorbidities, presenting symptoms, or acuity I expect that the services needed warrant INPATIENT care.: Yes I certify that my determination is in accordance with my understanding of Medicare's requirements for reasonable and necessary INPATIENT services [42 CFR 412.3e].: Yes Medical Necessity: Need For Continuous Telemetry Monitoring
[2018-06-25 13:58] VITALS: BP 159/75
== END 2018-06-25 15:10 | disposition home or self-care (01) | DRG 310 ==
LOC: ER 11:05 → EH 19:39 → 3N 06-23 03:35
PROVIDERS: ADMIT Internal Medicine; ATTEND Internal Medicine
DX: R00.1 Bradycardia, unspecified (principal); I48.0 Paroxysmal atrial fibrillation; I71.2 Thoracic aortic aneurysm, without rupture; I10 Essential (primary) hypertension; E78.5 Hyperlipidemia, unspecified; N40.0 Benign prostatic hyperplasia without lower urinary tract symptoms; E03.9 Hypothyroidism, unspecified; K21.9 Gastro-esophageal reflux disease without esophagitis; Z86.010 Personal history of colon polyps; Z87.891 Personal history of nicotine dependence; Z79.899 Other long term (current) drug therapy; Z88.0 Allergy status to penicillin
CPT/HCPCS: 36415; 70450; 71045; 71275; 80048; 80053; 80162; 81001; 82550; 82553; 83735; 84439; 84443; 84481; 84484; 85025; 85027; 85379; 93005; 93010; 93306; 99285; J1644; J3490